=== PATIENT | male | born 2000 | race Caucasian/White ===

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

== ENCOUNTER → 2020-09-16 14:24 | Outpatient (CLI) | payer BC ==
[2017-09-11 09:51] VITALS: BMI 27.8
== END | disposition home or self-care (01) ==
LOC: D.MRI 14:24
PROVIDERS: ATTEND Nurse Practitioner Family
DX: S83.206A Unspecified tear of unspecified meniscus, current injury, right knee, initial encounter (principal)

== ENCOUNTER 2020-11-25 09:45 | Day surgery (SDC) | payer BC ==
[~2020-11-25] VITALS: Ht 185.4 cm; Wt 89.8 kg
[2020-11-25 10:57] VITALS: BP 115/64; Ht 185.4 cm; Wt 89.8 kg
--- NOTE | 2020-11-25 11:25 | NUR ---
APPROXIMATELY 1 MINUTE AFTER ADMINISTERING REGLAN SLOWLY OVER 2 MIN, THIS NURSE WAS SLOWING PT'S IV DOWN WHEN PT'S EYES STARTED ROLLING BACK AND TO THE RIGHT. PT MADE SNORING NOISES AND BECAME UNRESPONSIVE FOR APPROXIMATELY 30 SECONDS. SUMMONED ASSISTANCE IMMEDIATELY. PT BECAME RESPONSIVE AND SAT UP IN BED IMMEDIATELY, SAYING WHAT HAPPENED? PT COLOR PALE, SKIN DIAPHORETIC. B/P 125/39, HR-60, 98% ON RA. ANESTHESIA NOTIFIED AND DR LIEBERMAN CAME TO BEDSIDE TO ASSESS PT. STATES WAS PROBABLY A VASOVAGAL RESPONSE TO REGLAN. PUT REGLAN AN ALLERGY FOR PT, ADDED IT TO CHART AND PT'S ARM BAND. PT'S MOTHER AT BEDSIDE DURING EVENT. SR UP X2 WITH CALL LIGHT IN REACH, MOTHER REMAINS AT BEDSIDE AT THIS TIME.
--- NOTE | 2020-11-25 12:30 | NUR ---
PT STATES HE IS FEELING OK, NO LONGER HAVING ISSUES AFTER REGLAN INJECTION/VASOVAGAL RESPONSE. MOTHER REMAINS AT BEDSIDE. SR UP X2 WITH CALL LIGHT IN REACH.
--- NOTE | 2020-11-25 17:03 | NUR ---
1640 DISCHARGE INSTRUCTIONS GIVEN TO PATIENT AND HIS MOTHER. DISCHARGED VIA WHEELCHAIR TO PRIVATE CAR.
--- NOTE | 2020-11-26 09:04 | OP ---
PATIENT NAME: ISHA CORTEZ MEDICAL RECORD: [id number] :00 LOCATION:[facility] ADMISSION DATE: SURGEON: ANGEL DELGADO, DATE OF OPERATION: 11/25/2020 PROCEDURE PERFORMED: Right knee arthroscopy with partial lateral meniscectomy. PREOPERATIVE DIAGNOSIS: Right knee lateral meniscal tear. POSTOPERATIVE DIAGNOSIS: Right knee lateral meniscal tear. INDICATIONS: The patient is a 20-year-old male, who was doing jujitsu and sustained a tear to his lateral meniscus during jujitsu. He had immediate pain and had an MRI showing a small tear in the lateral meniscus. I talked to him about turning it out versus fixing it depending on the location, he was okay with that and risk of infection, bleeding, damage to nerves or vessels, need for further surgery, continued pain, retear of the meniscus, blood clots and even and he signed the consent. SURGEON: Angel Delgado D.O. DESCRIPTION OF PROCEDURE: The patient was taken to the operative suite, laid in supine position, given general anesthetic and LMA was placed. He was given 2 grams of Ancef preoperatively. The right lower extremity was prepped and draped in sterile fashion. Timeout was performed. Everyone was in agreeance with the correct side, site, patient and procedure then began by making the lateral portal with an 11-blade scalpel. Trocar entered into the joint, into the subpatellar pouch. No loose bodies seen and the patella seemed to track well. There was nothing in the medial and lateral gutters. I then flexed the knee down and flexed the knee established medial portal with an 18-gauge spinal needle an 11-blade scalpel. Trocar was brought in. I then used the probe and probed along the medial meniscus. I did not see any tear in the superior aspect or the inferior aspect of the middle of the meniscus or around the posterior middle and anterior horns. I then inspected the ACL and it was in good repair. I then [id number]'ed the knee and saw tear in the posterior horn of the lateral meniscus right of the white-white zone almost at the meniscal root. I then brought in a biter and trimmed that out due to being in the white-white zone of the shaver to clean that up. After I had done that, I inspected the patellofemoral joint and no loose body is seen and the cartilage in good repair. I then turned the water off the suction on and removed excess fluid from the knee, closed the portal sites with 4-0 Monocryl inverted fashion and placed Steri-Strips, injected the site with 0.25% Marcaine with epinephrine, approximately 3 mL in each portal site prior to closing. He was then dressed with Adaptic, 4 x 4s, ABD, Webril, Kaleb wrap, CARMELITA hose stockings awakened and taken to recovery in stable condition. BLOOD LOSS: Minimal. COMPLICATIONS: None. TRANSINT:[id number] Voice Confirmation ID: [id number] DOCUMENT ID: [id number] OPERATIVE REPORT [id number] ISHA CORTEZ,ANGEL Ruvalcaba DO at 0904 CC: [id number] DICTATION DATE: 11/25/20 1536 [employer] SUPERVISOR: 11/26/20 0357 [facility] 11/25/20 [id number] [place] [address]
== END 2020-11-25 16:50 | disposition home or self-care (01) ==
LOC: D.OPS 09:45
PROVIDERS: ATTEND Orthopaedic Surgery
DX: S83.281A Other tear of lateral meniscus, current injury, right knee, initial encounter (principal); X58.XXXA Exposure to other specified factors, initial encounter